=== PATIENT | male | born 1965 | race Caucasian/White ===

== ENCOUNTER 2022-06-03 04:09 | Day surgery (SDC) | payer OTHER ==
[2022-05-30 11:06] VITALS: BMI 38.7
[~2022-06-03 04:09] MED LIST: LIDOCAINE HCL 2% JELLY 10 ML CARTRIDGE TP ONE; ceFAZolin SODIUM 1 GM VIAL IVPB ONE
[2022-06-03] MEDS ORDERED: ONDANSETRON 4 MG/2 ML VIAL IVPUSH PRN (10:32)
[2022-06-03] MEDS ORDERED: oxyCODONE HCL 5 MG TABLET PO PRN (10:32)
[2022-06-03] MEDS ORDERED: PROMETHAZINE HCL 25 MG/1 ML VIAL IVPB PRN (10:32)
[2022-06-03] MEDS ORDERED: LACTATED RINGERS SOLUTION 1,000 ML IV SCH (10:45)
[2022-06-03] MEDS ORDERED: MIDAZOLAM HCL 2 MG/2 ML SINGLE DOSE VIAL ONE (10:53)
[2022-06-03] MEDS ORDERED: ceFAZolin SODIUM 1 GM VIAL IVPB ONE (11:00)
[2022-06-03] MEDS ORDERED: PROPOFOL 40 ML ONE (11:01)
[2022-06-03] MEDS ORDERED: LIDOCAINE HCL 2% JELLY 10 ML CARTRIDGE TP ONE (11:25)
[2022-06-03 13:33] VITALS: RESP 18
[2022-06-03 13:57] VITALS: BP 140/70; TEMP 97
[2022-06-03 14:01] VITALS: PULSE 72
== END 2022-06-03 13:58 | disposition home or self-care (01) ==
LOC: JASU-SURG 04:09
PROVIDERS: ATTEND Urology
PROC: 0TC78ZZ Extirpation of Matter from Left Ureter, Via Natural or Artificial Opening Endoscopic (ICD-10-PCS; principal; 2022-06-03 09:30)
PROC: 0T778DZ Dilation of Left Ureter with Intraluminal Device, Via Natural or Artificial Opening Endoscopic (ICD-10-PCS; 2022-06-03 09:30)
DX: N20.1 Calculus of ureter (principal)
CPT/HCPCS: 76000-TC-FY; 82962; 94760; C1769; C2617